=== PATIENT | female | born 1970 | race American Indian/Alaskan Native ===

== ENCOUNTER 2016-09-11 06:16 | Day surgery (SDC) | payer OTHER ==
[2016-09-11] MEDS ORDERED: WATER FOR IRRIG STERILE IR ONE (07:12)
[2016-09-11] MEDS ORDERED: XYLOCAINE MPF 2% ONE (07:30)
--- NOTE | 2016-09-11 07:51 | Discharge Summary ---
Providers - Providers Date of discharge: 09/11/16 Attending physician: YARELI TELLEZ Primary care physician: [facility] [facility] Hospitalization Reason for admission: outpatient EGD Condition: Stable Procedures: EGD Disposition: DISCHARGED TO HOME OR SELFCARE Core Measure Documentation - Palliative Care Palliative Care/ Comfort Measures: Not Applicable - Core Measures Any of the following diagnoses?: none Exam - Physical Exam Narrative exam: unchanged from Preop - Constitutional Vitals: Temp Pulse Resp BP Pulse Ox 97.7 F 88 15 119/76 98 09/11/16 07:41 09/11/16 07:41 09/11/16 07:41 09/11/16 07:41 09/11/16 07:41 Plan Activity: advance as tolerated Diet: low carbohydrate Special Instructions: no heavy lifting Follow up with: PRIMARY CAREMD [Primary Care Provider] - 7 Days
--- NOTE | 2016-09-11 07:56 | Operative Report ---
Operative Report Operative Report: OPERATIVE REPORT - EGD DATE 09/11/16 SURGERY: Upper endoscopy. SURGEON: Rajeev Jackson M.D. BUDGET ASSISTANT: n/a PRE OP DX:dyspepsia POST OP DX: small hiatal hernia TYPE OF ANESTHESIA: MAC. ESTIMATED BLOOD LOSS: None. COMPLICATIONS: None. SPECIMENS REMOVED: None. FINDINGS: 1. Small hiatal hernia. 2. Otherwise, normal esophagus, stomach and first portion of duodenum. INDICATIONS:INDICATION FOR PROCEDURE: Patient is a 46-year-old female with a long history of morbid obesity. She is planned to have a weight loss procedure and is here for preoperative planning EGD. PROCEDURE DETAILS: After consent was reviewed, patient was taken back to the operating room where patient was placed in the left lateral decubitus position and a bite block was placed in the mouth. After a time-out was called, MAC anesthesia was initiated. I then passed the endoscope into her oropharynx, into her esophagus, visualized the entire esophagus, which was all within normal limits. I then visualized the stomach and the first portion of the duodenum and there were no abnormalities I could clearly visualize. I then retroflexed the scope in the stomach and visualized the hiatus and I could see a small hiatal hernia. I then desufflated the stomach and removed the endoscope. Patient tolerated procedure well and was transferred to recovery room in good and stable condition.
[2016-09-11] MEDS ORDERED: NACL 0.9% 1000 ML 1,000 ML IV SCH (08:00)
--- NOTE | 2016-09-11 08:21 | Anesthesia Day of Surgery ---
Anesthesia Day of Surgery - Day of Surgery Patient Examined: Yes Patient H&P Reviewed: Yes Patient is NPO: Yes
--- NOTE | 2016-09-11 08:21 | Anesthesia Consultation ---
Anesthesia Consult and Med Hx Date of service: 09/11/16 - Airway Anesthetic Teeth Evaluation: Good ROM Head & Neck: Adequate Mental/Hyoid Distance: Inadequate Mallampati Class: Class III Intubation Access Assessment: Possibly Difficult - Pulmonary Exam CTA: Yes (blbs clear) - Cardiac Exam Cardiac Exam: RRR - Pre-Operative Health Status ASA Pre-Surgery Classification: ASA3 Proposed Anesthetic Plan: MAC - Pulmonary Hx Smoking: No Hx Sleep Apnea: Yes - Cardiovascular System Hx Hypertension: Yes - Other Systems Hx Obesity: Yes
[2016-09-11] MEDS ORDERED: DIPRIVAN 10 MG/ML IV ONE ×2 (08:26)
--- NOTE | 2016-09-11 09:07 | Post Anesthesia Evaluation ---
- Post Anesthesia Evaluation Patient Participated: Yes Airway Patent: Yes Stable Respiratory Function: Yes Nausea/Vomiting: No Temp > 96.8F: Yes Pain Manageable: Yes Adequeate Hydration: Yes Anesthesia Complications: No Block Receding Appropriately: Not Applicable Patient on Ventilator: No
[2016-09-11 09:27] VITALS: BP 124/67
== END 2016-09-11 06:17 | disposition home or self-care (01) ==
LOC: GIO 06:16
PROVIDERS: ATTEND Surgery
DX: K44.9 Diaphragmatic hernia without obstruction or gangrene (principal); I10 Essential (primary) hypertension; E66.01 Morbid (severe) obesity due to excess calories; Z68.42 Body mass index [BMI] 45.0-49.9, adult; Z88.5 Allergy status to narcotic agent
CPT/HCPCS: 43235; 81025; J2704; J7030